=== PATIENT | male | born 1970 | race Caucasian/White ===

== ENCOUNTER 2023-04-27 21:29 | Emergency (ER) | payer MEDICAID ==
[~2023-04-27] VITALS: Ht 182.9 cm; Wt 71.0 kg
[2023-04-27 21:34] VITALS: BP 117/74
== END 2023-04-27 22:16 | disposition home or self-care (01) ==
LOC: ER 21:29
DX: F15.10 Other stimulant abuse, uncomplicated (principal); F17.200 Nicotine dependence, unspecified, uncomplicated; Z79.899 Other long term (current) drug therapy; Z56.0 Unemployment, unspecified
CPT/HCPCS: 99281